=== PATIENT | female | born 1995 | race Caucasian/White ===

== ENCOUNTER 2020-09-27 12:46 | Emergency (ER) | payer SELFPAY ==
--- NOTE | 2020-09-27 15:10 | RAD REPORT ---
EXAM DESCRIPTION: US - Transvaginal OB - 09/27/2020 2:49 pm CLINICAL HISTORY: VAGINAL BLEEDING, COMPARISON: No comparisons FINDINGS: Endovaginal OB sonography was performed. Preliminary findings were provided at the time of the study. A normal shaped intrauterine gestational sac is present in the fundus. Small echogenic focus is belie edouard be the pole. Cardiac activity was measured at 96 to 104 BPM. Small non clinically significa nt subchorionic hemorrhages present. [place]-rump length measurement corresponds to 6 week 0 day age. C alculated RAMY would be 05/23/2021. Uterine size is normal. No myometrial mass. Both ovaries are identified and show normal blood flow in the stroma. No suspicious ovarian or adnexal finding. IMPRESSION: A 6 week 0 day size IUP is identified within the heart rate 90 6-104 BPM. No suspicious ovarian or adnexal finding.
[2020-09-27 15:19] LABS: Urine Blood NEGATIVE (NEG); Urine Glucose NEGATIVE (NEG); Urine Protein NEGATIVE (NEG); Urine pH 6.5 (5.0-7.0)
--- NOTE | 2020-09-27 16:17 | EDPHYS ---
Physician Documentation [facility] Name: Liza Harmon Age: 25 yrs Sex: Female : 1995 Arrival Date: 09/27/2020 Time: 12:49 Bed 24 Private MD: ED Physician Jaylan Ovalles HPI: 09/27 16:45 This 25 yrs old Female presents to ER via Ambulatory with complaints of kb Vaginal Bleeding, + Preg <12wks, Nausea. 16:45 The patient presents to the emergency department with vaginal bleeding, that is light, kb that is moderate, with clots. The estimated gestational age is 6 weeks. course: care: none, Leakage of Fluid: none appreciated, Ultrasound: the patient has not had an ultrasound, Risk/complications: no obvious risks or complications are appreciated. Previous pregnancies: in previous pregnancies patient has had. Associated signs and symptoms: Pertinent positives: nausea, vaginal bleeding. The patient has not experienced similar symptoms in the past. The patient has not recently seen a physician. Pt reports she had intermittent vaginal bleeding with clots for 3-4 days. No bleeding today, but has some nausea this morning and a subjective fever. States "I think I had a miscarriage, but since I had the nausea I was concerned that I may be getting an infection because of it.". 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 - Social history:: Smoking status: Patient reports the use of cigarette tobacco products, smokes one-half pack cigarettes per day. ROS: 16:44 Constitutional: Negative for fever, chills, and weight loss, Cardiovascular: Negative kb for chest pain, palpitations, and edema, Respiratory: Negative for shortness of breath, cough, wheezing, and pleuritic chest pain, Back: Negative for injury and pain, MS/Extremity: Negative for injury and deformity, Skin: Negative for injury, rash, and discoloration, Neuro: Negative for headache, weakness, numbness, tingling, and seizure. 16:44 Abdomen/GI: Positive for nausea. 16:44 : Positive for vaginal bleeding. Exam: 16:44 Constitutional: This is a well developed, well nourished patient who is awake, alert, kb and in no acute distress. Head/Face: Normocephalic, atraumatic. Chest/axilla: Normal chest wall appearance and motion. Nontender with no deformity. No lesions are appreciated. Cardiovascular: Regular rate and rhythm with a normal S1 and S2. No gallops, murmurs, or rubs. Normal PMI, no JVD. No pulse deficits. Respiratory: Lungs have equal breath sounds bilaterally, clear to auscultation and percussion. No rales, rhonchi or wheezes noted. No increased work of breathing, no retractions or nasal flaring. Abdomen/GI: Soft, non-tender, with normal bowel sounds. No distension or tympany. No guarding or rebound. No evidence of tenderness throughout. Skin: Warm, dry with normal turgor. Normal color with no rashes, no lesions, and no evidence of cellulitis. MS/ Extremity: Pulses equal, no cyanosis. Neurovascular intact. Full, normal range of motion. Neuro: Awake and alert, GCS 15, oriented to person, place, time, and situation. Cranial nerves II-XII grossly intact. Motor strength 5/5 in all extremities. Sensory grossly intact. Cerebellar exam normal. Normal gait. Vital Signs: 12:59 BP 100 / 62; Pulse 75; Resp 18; Temp 98.7(TE); Pulse Ox 99% on R/A; Weight 44.45 kg tw2 (R); Height 5 ft. 1 in. (154.94 cm); Pain 0/10; 12:59 Body Mass Index 18.52 (44.45 kg, 154.94 cm) tw2 MDM: 15:11 Patient medically screened. kb 16:15 Data reviewed: vital signs, nurses notes. Data interpreted: Pulse oximetry: on room air kb is 99 %. Interpretation: normal. Counseling: I had a detailed discussion with the patient and/or guardian regarding: the historical points, exam findings, and any diagnostic results supporting the discharge/admit diagnosis, lab results, radiology results, the need for outpatient follow up, an OB/Gyne specialist, to return to the emergency department if symptoms worsen or persist or if there are any questions or concerns that arise at home. 09/27 15:12 Order name: Quantitative Hcg; Complete Time: 16:15 kb 09/27 15:12 Order name: Abo/rh Typing; Complete Time: 16:12 kb 09/27 13:09 Order name: US Transvaginal Ob; Complete Time: 15:12 kb 09/27 13:09 Order name: Urine Test (obtain specimen); Complete Time: 15:13 kb 09/27 13:09 Order name: Urine Dipstick-Ancillary (obtain specimen); Complete Time: 15:13 kb 09/27 15:15 Order name: Urine Dipstick--Ancillary (enter results); Complete Time: 15:33 bd 09/27 16:02 Order name: Labs - recollect needed: collect abo\\E\\rh no charge bd Administered Medications: No medications were administered Disposition: 19:02 Co-signature as Attending Physician, Jaylan Ovalles MD. rn Disposition: 09/27/20 16:16 Discharged to Home. Impression: Less than 8 weeks gestation of , Threatened . - Condition is Stable. - Discharge Instructions: First Trimester of , Rjvs-ej-Gudt, Threatened Miscarriage, Pzqi-ef-[id number], Vaginal Bleeding During , First Trimester, Rjut-is-Pzsr. - Medication Reconciliation Form, Thank You Letter, Antibiotic Education, Prescription Opioid Use form. - Follow up: Emergency Department; When: As needed; Reason: Worsening of condition. Follow up: Private Physician; When: 2 - 3 days; Reason: Recheck today's complaints, Continuance of care, Re-evaluation by your physician. Signatures: Dispatcher [employer] EDKY Hermelinda Escamilla, GAURAVC ASSISTANT BUSINESS MANAGER-Trish Brown Roman, MD MD rn Baxter, Heather, Josie Macdonald RN, RN RN tw2 Corrections: (The following items were deleted from the chart) 16:37 16:16 09/27/2020 16:16 Discharged to Home. Impression: Less than 8 weeks gestation of hb ; Threatened . Condition is Stable. Forms are Medication Reconciliation Form, Thank You Letter, Antibiotic Education, Prescription Opioid Use. Follow up: Emergency Department; When: As needed; Reason: Worsening of condition. Follow up: Private Physician; When: 2 - 3 days; Reason: Recheck today's complaints, Continuance of care, Re-evaluation by your physician. kb
--- NOTE | 2020-09-27 16:17 | ER ---
Nurse's Notes [facility] Name: Liza Harmon Age: 25 yrs Sex: Female : 1995 Arrival Date: 09/27/2020 Time: 12:49 Bed 24 Private MD: Diagnosis: Less than 8 weeks gestation of ;Threatened Presentation: 09/27 12:59 Chief complaint: Patient states: i am about 6 weeks , i was bleeding on and off tw2 for 4 or 5 days, today i feel like i was running a fever, i am scared that it didn't all pass and that i am getting an infection. Coronavirus screen: fever, Client presents with at least one sign or symptom that may indicate coronavirus-19. Standard/surgical mask placed on the client. Provider contacted for isolation considerations. Ebola Screen: Patient denies travel to an Ebola-affected area in the 21 days before illness onset. Initial Sepsis Screen: Does the patient meet any 2 criteria? No. Patient's initial sepsis screen is negative. Does the patient have a suspected source of infection? No. Patient's initial sepsis screen is negative. Risk Assessment: Do you want to hurt yourself or someone else? Patient reports no desire to harm self or others. Onset of symptoms was September 27, 2020. 12:59 Method Of Arrival: Ambulatory tw2 12:59 Acuity: CONSUELO 3 tw2 Triage Assessment: 12:59 General: Appears in no apparent distress. Behavior is calm, cooperative, appropriate tw2 for age. Pain: Denies pain. : Reports vaginal bleeding that is. 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 - Social history:: Smoking status: Patient reports the use of cigarette tobacco products, smokes one-half pack cigarettes per day. Screenin:15 Abuse screen: Denies threats or abuse. Denies injuries from another. Nutritional hb screening: No deficits noted. Tuberculosis screening: No symptoms or risk factors identified. Fall Risk None identified. Assessment: 15:30 General: Appears in no apparent distress. Behavior is calm, cooperative. Pain: Denies hb pain. Neuro: Level of Consciousness is awake, alert, obeys commands, Oriented to person, place, time, situation. Cardiovascular: Capillary refill < 3 seconds Patient's skin is warm and dry. Respiratory: Airway is patent Respiratory effort is even, unlabored, Respiratory pattern is regular, symmetrical. GI: No signs and/or symptoms were reported involving the gastrointestinal system. : Reports vaginal bleeding that is spotty. EENT: No signs and/or symptoms were reported regarding the EENT system. Derm: Skin is pink, warm \T\ dry. Musculoskeletal: No signs and/or symptoms reported regarding the musculoskeletal system. 16:15 Reassessment: Patient appears in no apparent distress at this time. Patient and/or hb family updated on plan of care and expected duration. Pain level reassessed. Patient is alert, oriented x 3, equal unlabored respirations, skin warm/dry/pink. Vital Signs: 12:59 BP 100 / 62; Pulse 75; Resp 18; Temp 98.7(TE); Pulse Ox 99% on R/A; Weight 44.45 kg tw2 (R); Height 5 ft. 1 in. (154.94 cm); Pain 0/10; 12:59 Body Mass Index 18.52 (44.45 kg, 154.94 cm) tw2 ED Course: 12:49 Patient arrived in ED. ds1 13:01 Triage completed. tw2 13:01 Arm band placed on. tw2 14:16 Hermelinda Escamilla FNP-C is [facility]. kb 14:16 Jaylan Ovalles MD is Attending Physician. kb 14:49 Transvaginal Ob In Process Unspecified. EDMS 15:13 Josephine Johnson, RN is Primary Nurse. hb 16:15 Patient has correct armband on for positive identification. Placed in gown. Bed in low hb position. Call light in reach. 16:36 No provider procedures requiring assistance completed. Patient did not have IV access hb during this emergency room visit. Administered Medications: No medications were administered Outcome: 16:16 Discharge ordered by . kb 16:36 Discharged to home ambulatory. hb 16:36 Condition: stable 16:36 Discharge instructions given to patient, Instructed on discharge instructions, follow up and referral plans. Demonstrated understanding of instructions, follow-up care. 16:37 Patient left the ED. hb Signatures: Dispatcher [employer] EDMS Hermelinda Escamilla, LAND INSPECTOR-C LAND INSPECTOR-Helen Saunders ds1 Josephine Johnson, RN RN hb Josie Mireles RN RN tw2
[2020-09-27 16:41] VITALS: BP 100/62; TEMP 98.7; O2SAT 99
== END 2020-09-27 16:37 | disposition home or self-care (01) ==
LOC: ER 12:46
DX: O20.0 Threatened abortion (principal); Z3A.01 Less than 8 weeks gestation of pregnancy; O99.331 Smoking (tobacco) complicating pregnancy, first trimester; F17.210 Nicotine dependence, cigarettes, uncomplicated
CPT/HCPCS: 36415; 76817; 81003; 84702; 86900; 86901; 99283